=== PATIENT | female | born 1980 | race American Indian/Alaskan Native ===

== ENCOUNTER 2017-08-22 07:57 | Outpatient (CLI) | payer BC ==
[2017-08-24 16:35] LABS: Basophils % (Auto) 0.6 % (0.0-1.8); Eosinophils # (Auto) 0.2 K/mm3 (0.0-0.4); Eosinophils % (Auto) 2.2 % (0.0-4.3); Hematocrit 40.2 % (30.3-42.9); Hemoglobin 13.3 gm/dl (10.1-14.3); Lymphocytes # (Auto) 1.8 K/mm3 (1.2-5.4); Lymphocytes % (Auto) 20.5 % (13.4-35.0); Mean Corpuscular HGB Conc 33 % (30-34); Mean Corpuscular Hemoglobin 30 pg (28-32); Mean Corpuscular Volume 90 fl (79-97); Monocytes # (Auto) 0.4 K/mm3 (0.0-0.8); Platelet Count 291 K/mm3 (140-440); Red Blood Count 4.44 M/mm3 (3.65-5.03); Red Cell Distribution Width 13.8 % (13.2-15.2)
[2017-08-24 17:07] LABS: HCG,Quantitative 1117 mIU/mL (0-4); Hepatitis C Virus Antibody Non-Reactive (NonReactive); Rubella IgG Antibody Immune (Immune)
[2017-08-30 08:42] LABS: HIV-1 Antibody Differentiation SEE SCANNED RESULT; HIV-2 Antibody Differentiation SEE SCANNED RESULT
== END 2017-08-22 07:58 | disposition home or self-care (01) ==
LOC: LABHHL 07:57
PROVIDERS: ATTEND Obstetrics & Gynecology
DX: O03.9 Complete or unspecified spontaneous abortion without complication (principal); Z3A.01 Less than 8 weeks gestation of pregnancy
CPT/HCPCS: 36415; 84702; 85025; 85660; 86592; 86689; 86762; 86803; 86850; 86900; 86901; 87086; 88305

== ENCOUNTER 2019-01-31 11:36 | Emergency (ER) | payer BC ==
[2019-01-31 11:51] VITALS: BP 153/87
--- NOTE | 2019-01-31 11:51 | Event Note ---
ED Screening Note ED Screening Note: lower abd pain for two weeks and lower back occasional nausea no vomiting no diarrhea no fever +pressure and dysuria with urination normal BM yesterday PMHx none no allergies to meds LNMP January 20 This initial assessment/diagnostic orders/clinical plan/treatment(s) is/are subject to change based on patients health status, clinical progression and re- assessment by fellow clinical providers in the ED. Further treatment and workup at subsequent clinical providers discretion. Patient/guardian urged not to elope from the ED as their condition may be serious if not clinically assessed and managed. Initial orders include: labs, UA
--- NOTE | 2019-01-31 12:48 | Emergency Department Report ---
HPI - General Chief Complaint: Abdominal Pain Time Seen by Provider: 01/31/19 11:50 - HPI HPI: 38-year-old -[place] female, who is an employee here, presents to the emergency department with the complaint of lower abdominal and/or pelvic pain for the past 2.5 weeks. At first she thought it was related to her menstrual cycle as it started about that time, but the menstrual cycle ended and the pain continues. She then thought it might be some gas but has been passing gas and having regular bowel movements and yet the pain still continues. It is intermittent but is becoming more often and more intense. She denies any dysuria, vaginal bleeding or discharge, fever. She has a past medical history of fibroids and 2 previous C-sections. She has tried lktt-fql-vwjfjzk gas and laxative medications without any relief. Her last menstrual cycle was January 20. ED Past Medical Hx - Past Medical History Previous Medical History?: Yes Additional medical history: fibroids - Surgical History Past Surgical History?: Yes Additional Surgical History: c section x 2 - Social History Smoking Status: Never Smoker Substance Use Type: Alcohol - Medications Home Medications: Home Medications Medication Instructions Recorded Confirmed Last Taken Type Ibuprofen [Motrin] 600 mg PO Q8H PRN #40 tablet 03/09/15 12/07/15 Unknown Rx traMADol [Ultram] 50 mg PO Q6HR PRN #20 tablet 12/07/15 Unknown Rx Docusate Sodium [Colace] 100 mg PO BID PRN #20 capsule 01/31/19 Unknown Rx ED Review of Systems ROS: Stated complaint: LOW ABD PAIN Other details as noted in HPI Comment: All other systems reviewed and negative Constitutional: denies: chills, fever Gastrointestinal: abdominal pain. denies: nausea, vomiting Genitourinary: denies: dysuria, discharge Musculoskeletal: denies: back pain Neurological: denies: numbness, paresthesias Physical Exam - Physical Exam Vital Signs: Vital Signs 01/31/19 11:50 Temperature 98.0 F Pulse Rate 85 Respiratory 16 Rate Blood Pressure 153/87 O2 Sat by Pulse 100 Oximetry Physical Exam: GENERAL: The patient is well-developed well-nourished. HENT: Normocephalic. Atraumatic. Patient has moist mucous membranes. EYES: Extraocular motions are intact. NECK: Supple. Trachea is midline. CHEST/LUNGS: Clear to auscultation. There is no respiratory distress noted. HEART/CARDIOVASCULAR: Regular. There is no tachycardia. There is no murmur. ABDOMEN: Abdomen is soft, nontender. No guarding. Patient has normal bowel sounds. There is no abdominal distention. SKIN: Skin is warm and dry. NEURO: The patient is awake, alert, and oriented. The patient is cooperative. The patient has no focal neurologic deficits. Normal speech. MUSCULOSKELETAL: There is no tenderness or deformity. There is no evidence of acute injury. ED Course Vital Signs 01/31/19 11:50 Temperature 98.0 F Pulse Rate 85 Respiratory 16 Rate Blood Pressure 153/87 O2 Sat by Pulse 100 Oximetry ED Medical Decision Making - Lab Data Result diagrams: 01/31/19 12:10 01/31/19 12:10 - Radiology Data Radiology results: report reviewed, image reviewed interpreted by me: Abdominal x-ray shows increased stool volume concerning for constipation. ULTRASOUND PELVIS DUPLEX DOPPLER COMPLETE ULTRASOUND TRANSVAGINAL HISTORY: Pelvic pain TECHNIQUE: Transabdominal and transvaginal ultrasound with color and spectral Doppler imaging. FINDINGS: The uterus is anteverted. The uterus is enlarged measuring 12 x 5 x 8 cm. There are a few scattered intramural fibroids. A 1.5 cm intramural fibroid is identified in the left lateral wall. A 2.5 cm intramural fibroid is identified in the anterior left lateral wall. A large exophytic fibroid from the right lateral wall measures up to 7.5 cm. The endometrium measures 1.3 cm. The right ovary measures 6.9 x 3.7 x 7.9 cm. A large 6.5 cm cyst is identified in the right ovary. The left ovary measures 3.8 x 3.4 x 4.5 cm. A 2.3 cm left ovarian cyst is identified. Spectral Doppler waveforms demonstrate arterial flow to both ovaries. IMPRESSION: Uterine fibroid disease. Bilateral ovarian cyst as described. - Medical Decision Making Patient presents with some lower abdominal or pelvic discomfort over the past 2.5 weeks. Labs have been unremarkable including CBC, metabolic panel, urinalysis and the patient is not . Transvaginal ultrasound shows multiple uterine fibroids including a large exophytic 7.5 cm right-sided fibroid, and bilateral ovarian cysts including a large right-sided 6 cm cyst. No ovarian torsion. Abdominal x-ray shows a large amount of stool but no signs of obstruction. The patient later tells me that she does have a history of irregular bowel movements for which she has seen GI and has even been on Linzess recently. Despite the large fibroid and large cyst, they are right-sided and her pain is mostly to the left lower quadrant and left pelvis. It may be secondary to the increased stool volume. Abdomen is soft, nontoxic and nondistended. Patient has good follow-up with primary care and gastroenterology. She will be placed on Colace stool softeners. She will return to the emergency Department with any worsening of her symptoms or any acute distress. Vital signs stable throughout her ED course. - Differential Diagnosis ovarian cyst, ovarian torsion, fibroids, constipation, colitis Critical Care Time: No Critical care attestation.: If time is entered above; I have spent that time in minutes in the direct care of this critically ill patient, excluding procedure time. ED Disposition Clinical Impression: Increased stool volume, Fibroids Abdominal pain Qualifiers: Abdominal location: left lower quadrant Qualified Code(s): R10.32 - Left lower quadrant pain Ovarian cyst Qualifiers: Laterality: bilateral Qualified Code(s): N83.201 - Unspecified ovarian cyst, right side Disposition: DC-01 TO HOME OR SELFCARE Is pt being admited?: No Condition: Stable Instructions: Ovarian Cyst (ED), Uterine Fibroids (ED), Constipation (ED), High Fiber Diet (ED), Abdominal Pain (ED) Additional Instructions: Please follow-up with your primary care physician in the next few days. Return to the emergency Department with any worsening of your symptoms or any acute distress. Prescriptions: Docusate Sodium [Colace] 100 mg PO BID PRN #20 capsule PRN Reason: Constipation Referrals: JEREMIAS FAITH MD [Primary Care Provider] - 2-3 Days
[2019-01-31 13:04] LABS: Basophils # (Auto) 0.1 K/mm3 (0.0-0.1); Basophils % (Auto) 0.8 % (0.0-1.8); Eosinophils # (Auto) 0.3 K/mm3 (0.0-0.4); Eosinophils % (Auto) 3.4 % (0.0-4.3); Hematocrit 43.4 % (30.3-42.9); Hemoglobin 14.7 gm/dl (10.1-14.3); Lymphocytes # (Auto) 2.3 K/mm3 (1.2-5.4); Lymphocytes % (Auto) 31.4 % (13.4-35.0); Mean Corpuscular HGB Conc 34 % (30-34); Mean Corpuscular Volume 91 fl (79-97); Monocytes # (Auto) 0.4 K/mm3 (0.0-0.8); Monocytes % (Auto) 5.5 % (0.0-7.3); Red Blood Count 4.76 M/mm3 (3.65-5.03); Red Cell Distribution Width 13.6 % (13.2-15.2)
[2019-01-31 13:31] LABS: Alanine Aminotransferase 13 units/L (7-56); Albumin 4.4 g/dL (3.9-5); BUN/Creatinine Ratio 17; Blood Urea Nitrogen 17 mg/dL (7-17); Calcium 9.5 mg/dL (8.4-10.2); Hemolysis Index 34
--- NOTE | 2019-01-31 13:58 | Ultrasound Report ---
ULTRASOUND PELVIS DUPLEX DOPPLER COMPLETE ULTRASOUND TRANSVAGINAL HISTORY: Pelvic pain TECHNIQUE: Transabdominal and transvaginal ultrasound with color and spectral Doppler imaging. FINDINGS: The uterus is anteverted. The uterus is enlarged measuring 12 x 5 x 8 cm. There are a few scattered i ntramural fibroids. A 1.5 cm intramural fibroid is identified in the left lateral wall. A 2.5 cm intr amural fibroid is identified in the anterior left lateral wall. A large exophytic fibroid from the ri ght lateral wall measures up to 7.5 cm. The endometrium measures 1.3 cm. The right ovary measures 6.9 x 3.7 x 7.9 cm. A large 6.5 cm cyst is identified in the right ovary. The left ovary measures 3.8 x 3.4 x 4.5 cm. A 2.3 cm left ovarian cyst is identified. Spectral Doppler waveforms demonstrate arterial flow to both ovaries. IMPRESSION: Uterine fibroid disease. Bilateral ovarian cyst as described. Signer Name: Prasanth Campbell Jr, MD Signed: 01/31/2019 1:54 PM Workstation Name: [id number]
[2019-01-31 14:19] LABS: Bacteria,Urine 3+ /HPF (Negative); Bilirubin,Urine NEG (Negative); Blood,Urine MOD (Negative); Color,Urine Yellow (Yellow); Hyaline Casts,Urine 1 /LPF; Mucus,Urine 3+ /HPF; Protein,Urine <15 mg/dL mg/dL (Negative); Urobilinogen,Urine < 2.0 mg/dL (<2.0)
[2019-01-31 14:21] LABS: HCG Qualitative,Urine Negative (Negative)
[2019-01-31 14:58] LABS: Platelet Count 195 K/mm3 (140-440)
--- NOTE | 2019-01-31 15:07 | XRay Report ---
ABDOMEN 2 VIEW(S) INDICATION / CLINICAL INFORMATION: Abdominal pain. COMPARISON: None available. FINDINGS: TUBES / LINES: None. BOWEL GAS PATTERN: Moderate stool is present throughout the colon. No dilated bowel or fluid levels. FREE AIR / EXTRALUMINAL GAS: None seen. ADDITIONAL FINDINGS: Subtle calcified fibroid is suspected in the pelvis measuring up to 5 cm. IMPRESSION: Constipation. Uterine fibroid. Signer Name: Prasanth Campbell Jr, MD Signed: 01/31/2019 3:02 PM Workstation Name: [id number]
== END 2019-01-31 15:43 | disposition home or self-care (01) ==
LOC: ED 11:36
DX: N83.201 Unspecified ovarian cyst, right side (principal)
CPT/HCPCS: 36415; 74019; 76830; 80053; 81001; 81025; 85025; 93975

== ENCOUNTER 2019-07-14 09:50 | Outpatient (CLI) | payer BC ==
[2019-07-14 10:08] LABS: Basophils # (Auto) 0.1 K/mm3 (0.0-0.1); Eosinophils # (Auto) 0.3 K/mm3 (0.0-0.4); Eosinophils % (Auto) 3.4 % (0.0-4.3); Hematocrit 39.9 % (30.3-42.9); Hemoglobin 13.1 gm/dl (10.1-14.3); Lymphocytes # (Auto) 2.2 K/mm3 (1.2-5.4); Lymphocytes % (Auto) 29.1 % (13.4-35.0); Mean Corpuscular HGB Conc 33 % (30-34); Mean Corpuscular Volume 91 fl (79-97); Monocytes # (Auto) 0.5 K/mm3 (0.0-0.8); Monocytes % (Auto) 6.6 % (0.0-7.3); Platelet Count 292 K/mm3 (140-440); Red Blood Count 4.41 M/mm3 (3.65-5.03); Red Cell Distribution Width 13.8 % (13.2-15.2)
[2019-07-14 10:33] LABS: Alanine Aminotransferase 27 units/L (7-56); Albumin 4.3 g/dL (3.9-5); BUN/Creatinine Ratio 13; Blood Urea Nitrogen 13 mg/dL (7-17); Calcium 9.7 mg/dL (8.4-10.2); Hemolysis Index 5; LDL Cholesterol,Direct 100 mg/dL (50-130)
[2019-07-14 11:46] LABS: Chol/HDL Ratio 2.52 %; HDL Cholesterol 69 mg/dL (40-59)
== END 2019-07-14 09:51 | disposition home or self-care (01) ==
LOC: LAB 09:50
PROVIDERS: ATTEND Family Medicine
DX: Z00.00 Encounter for general adult medical examination without abnormal findings (principal)
CPT/HCPCS: 36415; 80053; 80061; 85025

== ENCOUNTER 2020-01-14 13:30 | Outpatient (CLI) | payer BC ==
[2020-01-14 13:46] LABS: Bilirubin,Urine NEG (Negative); Blood,Urine SM (Negative); Color,Urine Straw (Yellow); Protein,Urine <15 mg/dL mg/dL (Negative); Urobilinogen,Urine < 2.0 mg/dL (<2.0)
== END 2020-01-14 13:31 | disposition home or self-care (01) ==
LOC: LAB 13:30
PROVIDERS: ATTEND Family Medicine
DX: N39.0 Urinary tract infection, site not specified (principal); Z13.29 Encounter for screening for other suspected endocrine disorder
CPT/HCPCS: 81001; 87086

== ENCOUNTER 2020-06-10 14:42 | Outpatient (CLI) | payer BC ==
--- NOTE | 2020-06-10 16:02 | Mammography Report ---
DIGITAL SCREENING MAMMOGRAM WITH TOMOSYNTHESIS WITH CAD, 06/10/2020 CLINICAL INFORMATION / INDICATION: Routine Screening Mammography. TECHNIQUE: Digital bilateral 2D and 3D mammography with tomosynthesis was obtained in the craniocaud al and mediolateral oblique projections. Computer-Aided Detection (CAD) analysis was used for interp retation of this study. COMPARISON: None FINDINGS: Breast Density: The breasts are heterogeneously dense, which may obscure small masses. No dominant mass, suspicious calcifications, or architectural distortion in either breast. IMPRESSION: No mammographic evidence of malignancy. Follow up recommendation: Routine yearly BI-RADS Category 1: Negative. A "normal" or negative report should not discourage follow up or biopsy of a clinically significant f inding. A written summary of these findings will be mailed to the patient. The patient will be entered into a mammography reporting system which will generate a reminder letter for the patient's next appointmen t at the appropriate interval. The [employer] recommends yearly mammograms starting at age 40 and continuing as l jimbo as a woman is in good health. Breast MRI is recommended for women with an approximate 20-25% or greater lifetime risk of breast cancer, including women with a strong family history of breast or ova jose g cancer or who have been treated for Hodgkin's disease. Signer Name: Ángel Patterson MD Signed: 06/10/2020 3:58 PM Workstation Name: [id number]
== END 2020-06-10 14:43 | disposition home or self-care (01) ==
LOC: SPVWC 14:42
PROVIDERS: ATTEND Obstetrics & Gynecology
DX: Z12.31 Encounter for screening mammogram for malignant neoplasm of breast (principal)
CPT/HCPCS: 77063; 77067

== ENCOUNTER 2021-04-05 10:41 | Outpatient (CLI) | payer BC ==
[2021-04-06 11:40] LABS: Alanine Aminotransferase 15 units/L (7-56); Albumin 4.6 g/dL (3.9-5); BUN/Creatinine Ratio 14; Blood Urea Nitrogen 13 mg/dL (7-17); Calcium 9.7 mg/dL (8.4-10.2); Chol/HDL Ratio 2.37 %; HDL Cholesterol 83 mg/dL (40-59); Hemolysis Index 3; LDL Cholesterol,Direct 106 mg/dL (50-130)
[2021-04-06 11:44] LABS: Free T4 (Free Thyroxine) 1.36 ng/dL (0.76-1.46)
[2021-04-06 12:41] LABS: Basophils % (Auto) 0.7 % (0.0-1.8); Eosinophils # (Auto) 0.2 K/mm3 (0.0-0.4); Eosinophils % (Auto) 3.2 % (0.0-4.3); Hematocrit 43.5 % (30.3-42.9); Hemoglobin 13.9 gm/dl (10.1-14.3); Lymphocytes # (Auto) 2.2 K/mm3 (1.2-5.4); Lymphocytes % (Auto) 38.4 % (13.4-35.0); Mean Corpuscular HGB Conc 32 % (30-34); Mean Corpuscular Volume 93 fl (79-97); Monocytes # (Auto) 0.4 K/mm3 (0.0-0.8); Monocytes % (Auto) 6.3 % (0.0-7.3); Platelet Count 303 K/mm3 (140-440); Red Cell Distribution Width 13.6 % (13.2-15.2)
[2021-04-06 13:35] LABS: Creatinine,Urine 105.4 mg/dL (0.1-20.0)
[2021-04-06 13:36] LABS: Microalbumin/Creatinine Ratio 11.3 ug/mg
== END 2021-04-05 10:42 | disposition home or self-care (01) ==
LOC: LAB 10:41
PROVIDERS: ATTEND Family Medicine
DX: Z00.00 Encounter for general adult medical examination without abnormal findings (principal)
CPT/HCPCS: 36415; 80053; 80061; 82043; 84439; 84443; 85025

== ENCOUNTER 2021-05-04 15:02 | Outpatient (CLI) | payer BC ==
--- NOTE | 2021-05-04 16:55 | Ultrasound Report ---
BILATERAL DIGITAL DIAGNOSTIC MAMMOGRAM WITH CAD CONVENTIONAL, 05/04/2021 LEFT LIMITED BREAST ULTRASOUND CLINICAL INFORMATION / INDICATION: Patient presents for evaluation of an area of palpable concern in the left breast. N63.24 TECHNIQUE: Digital bilateral mammographic imaging was performed. Spot compression views were obtained . Limited ultrasound was performed. This examination was interpreted with the benefit of Computer-Aid ed Detection (CAD) analysis. COMPARISON: Prior mammogram 06/10/2020 FINDINGS: Breast Density: The breasts are heterogeneously dense, which may obscure small masses. MAMMOGRAPHIC FINDINGS: No dominant mass, suspicious calcifications, or architectural distortion in th e right breast. There is suggestion of a approximately 2.5 cm obscured oval mass corresponding with t he site of palpable concern in the 12:00 position of the left breast, middle depth. An additional que stioned nodular density in the far posterior 9 to 10:00 position of the left breast did not persist o n spot compression views, most suggestive of overlapping fibroglandular tissue. Targeted ultrasound w as performed for further evaluation. ULTRASOUND FINDINGS: Targeted ultrasound evaluation was performed of the area of interest. Targeted ultrasound of the area of palpable concern in the left breast 11:00 position located 5 cm from the n ipple reveals an oval circumscribed mixed echogenicity mass measuring up to 2.7 x 0.8 x 1.6 cm. The m ass is parallel. Incidental note is made of several additional scattered benign cysts in the left jessa ast. IMPRESSION: 1. An oval circumscribed mixed echogenicity mass corresponds with the site of palpable concern in the left breast. This is considered low suspicion for malignancy and most likely reflects a fibroadenoma . However, because this area is newly palpable, ultrasound-guided biopsy is recommended for confirmat ion. Follow up recommendation: Biopsy BI-RADS Category 4: SUSPICIOUS FOR MALIGNANCY. A "normal" or negative report should not discourage follow up or biopsy of a clinically significant f inding. A written summary of these findings will be mailed to the patient. The patient will be entered into a mammography reporting system which will generate a reminder letter for the patient's next appointmen t at the appropriate interval. According to the [employer], yearly mammograms are recommended starting at age 40 and continuing as long as a woman is in good health. Breast MRI is recommended for women with an cedrick roximately 20-25% or greater lifetime risk of breast cancer, including women with a strong family his tory of breast or ovarian cancer and women who have been treated for Hodgkin's disease. Signer Name: Thuy Horton MD Signed: 05/04/2021 4:50 PM Workstation Name: [id number]
== END 2021-05-04 15:03 | disposition home or self-care (01) ==
LOC: MAMMO 15:02
PROVIDERS: ATTEND Obstetrics & Gynecology
DX: N63.24 Unspecified lump in the left breast, lower inner quadrant (principal)
CPT/HCPCS: 77066

== ENCOUNTER 2021-06-02 10:35 | Outpatient (CLI) | payer BC ==
--- NOTE | 2021-06-02 12:17 | Mammography Report ---
ULTRASOUND GUIDED LEFT BREAST BIOPSY, 06/02/2021 Left DIAGNOSTIC MAMMOGRAM CLINICAL INFORMATION / INDICATION: POST US BX. Palpable left breast nodule here for follow-up biopsy COMPARISON: Ultrasound and diagnostic mammogram from 05/04/2021 PROCEDURE: Risks, benefits, and indications to the procedure were discussed with the patient in detail, includin g bleeding, infection, hematoma formation, and inadequate tissue sampling. The patient agreed to proc eed with both verbal and written consent. A timeout procedure was performed with two patient identifi ers. The breast was prepped and draped in the usual sterile fashion. Lidocaine 1% was used for local anest hesia. Under direct ultrasound guidance, 3 separate 14 gauge core samples were obtained of the left b reast nodule. A biopsy marker was then placed. Biopsy device was removed and hemostasis achieved wit h manual pressure. A sterile dressing was applied to the skin. The patient tolerated the procedure without difficulty. No complications were encountered. Postbiopsy instructions were discussed with the patient and given in writing. Specimens were sent to pathology. The patient was then sent for a confirmatory mammogram to demonstrate adequate clip positioning in th e area in question. IMPRESSION: 1. Technically successful ultrasound guided left breast biopsy. 2. Satisfactory positioning of the biopsy clip on the post procedure mammogram. Biopsy results are pending and will be reported in an addendum. Signer Name: Ángel Patterson MD Signed: 06/02/2021 12:11 PM Workstation Name: [id number]
== END 2021-06-02 10:36 | disposition home or self-care (01) ==
LOC: US 10:35
PROVIDERS: ATTEND Obstetrics & Gynecology
DX: N63.24 Unspecified lump in the left breast, lower inner quadrant (principal); R92.8 Other abnormal and inconclusive findings on diagnostic imaging of breast; Z79.899 Other long term (current) drug therapy
CPT/HCPCS: 88305

== ENCOUNTER 2021-09-23 08:41 | Day surgery (SDC) | payer BC ==
[~2021-09-23 08:41] MED LIST: ACETAMINOPHEN 500 MG TAB PO SCH; CELECOXIB 200 MG CAP PO NR; GABAPENTIN 300 MG CAP PO NR; LACTATED RINGERS 1,000 ML IV SCH; MIDAZOLAM 2 MG/2 ML INJ IV NR; SCOPOLAMINE TRANSDERMAL PATCH 72 HR TD NR
--- NOTE | 2021-09-23 10:51 | Anesthesia Consultation ---
Anesthesia Consult and Med Hx Date of service: 09/23/21 - Airway Anesthetic Teeth Evaluation: Good ROM Head & Neck: Adequate Mental/Hyoid Distance: Adequate Mallampati Class: Class II Intubation Access Assessment: Probably Good - Pre-Operative Health Status ASA Pre-Surgery Classification: ASA2 Proposed Anesthetic Plan: MAC Nerve Block: PECS I/II - Pulmonary Hx Smoking: Yes (former smoker quit many years ago) Hx Respiratory Symptoms: No - Cardiovascular System Hx Hypertension: Yes Hx Heart Attack/AMI: No - Central Nervous System CVA: No - Endocrine Hx Renal Disease: No Hx Liver Disease: No Hx Insulin Dependent Diabetes: No Hx Non-Insulin Dependent Diabetes: No Hx Thyroid Disease: No - Other Systems Hx Obesity: Yes (BMI 32) - Additional Comments Anesthesia Medical History Comments: No prior GA or FHx anesthetic complications. Patient would like to avoid GA.
--- NOTE | 2021-09-23 10:51 | Anesthesia Day of Surgery ---
Anesthesia Day of Surgery - Day of Surgery Patient Examined: Yes Patient H&P Reviewed: Yes Patient is NPO: Yes
[2021-09-23] MEDS ORDERED: ceFAZolin/Water 2 GM/20 ML 2 GM/20 ML SYRINGE IV ONE (10:59)
[2021-09-23] MEDS ORDERED: BUPIVACAINE/PF (0.5%) 5 MG/1 ML 30 ML VIAL INFILTRATI ONE ×3 (12:42→14:16)
[2021-09-23] MEDS ORDERED: ceFAZolin/STERILE WATER 2 GM/20 ML SYRINGE IV NR (13:00)
[2021-09-23] MEDS ORDERED: fentaNYL 100 MCG/2 ML INJ IV PRN (13:00)
[2021-09-23] MEDS ORDERED: LIDOCAINE (1%) 10 MG/1 ML VIAL 20 ML MDV ONE ×2 (13:06→13:38)
[2021-09-23] MEDS ORDERED: BUPIVACAINE-EPINEPHRINE/PF 0.25%-1:200,000 (30 ML) VIAL INFILTRATI ONE (13:06)
[2021-09-23] MEDS ORDERED: propofoL 200 MG/20 ML VIAL IV ONE ×2 (13:35→13:49)
[2021-09-23] MEDS ORDERED: LIDOCAINE MPF (2%) 20 MG/1 ML VIAL 5 ML ONE (13:35)
[2021-09-23] MEDS ORDERED: LIDOCAINE (1%) 10 MG/1 ML VIAL 20 ML MDV INFILTRATI ONE (14:15)
[2021-09-23] MEDS ORDERED: WATER FOR IRRIG STERILE 1,000 ML BOTTLE IR ONE (14:16)
--- NOTE | 2021-09-23 14:42 | Short Stay Summary ---
Short Stay Documentation Date of service: 09/23/21 - History H&P: obtained from office - Allergies and Medications Current Medications: Allergies No Known Allergies Allergy (Verified 09/15/21 10:23) Home Medications Medication Instructions Recorded Confirmed Last Taken Type hydroCHLOROthiazide [Hctz] 12.5 mg PO QDAY 09/21/21 09/21/21 Unknown History Active Medications Acetaminophen (Acetaminophen 500 Mg Tab) 1,000 mg PO PREOP MANOHAR Last Admin: 09/23/21 09:30 Dose: 1,000 mg Cefazolin Sodium (Cefazolin/Sterile Water 2 Gm/20 Ml Syringe) 2 gm IV PREOP NR Stop: 09/23/21 23:59 Celecoxib (Celecoxib 200 Mg Cap) 200 mg PO PREOP NR Stop: 09/23/21 23:59 Last Admin: 09/23/21 09:30 Dose: 200 mg Fentanyl (Fentanyl 100 Mcg/2 Ml Inj) 100 mcg IV ONCE PRN PRN Reason: sedation for nerve block Stop: 09/23/21 20:00 Last Admin: 09/23/21 13:11 Dose: 100 mcg Gabapentin (Gabapentin 300 Mg Cap) 300 mg PO PREOP NR Stop: 09/23/21 23:59 Last Admin: 09/23/21 09:30 Dose: 300 mg Lactated Ringer's (Lactated Ringers) 1,000 mls @ 100 mls/hr IV DIRECT MANOHAR Stop: 09/23/21 23:59 Last Admin: 09/23/21 09:30 Dose: 100 mls/hr Midazolam HCl (Midazolam 2 Mg/2 Ml Inj) 2 mg IV PREOP NR Stop: 09/23/21 23:59 Last Admin: 09/23/21 13:11 Dose: 2 mg Scopolamine (Scopolamine Transdermal Patch 72 Hr) 1 each TD PREOP NR Stop: 09/23/21 23:59 Last Admin: 09/23/21 09:30 Dose: 1 each - Brief post op/procedure progress note Date of procedure: 09/23/21 Pre-op diagnosis: Left breast mass Post-op diagnosis: same Procedure: Excisional biopsy left breast mass Anesthesia: MAC Findings: Left breast mass identified by ultrasound with a clip in place. It is up to 11 o'clock position 1 cm from the nipple. Surgeon: GUILLERMO DODSON (Dr. Morris) Estimated blood loss: minimal Pathology: list (Left breast open biopsy with short stitch on the superficial margin and a long stitch on the lateral margin) - Disposition Condition at discharge: Good Disposition: 01 HOME / SELF CARE / HOMELESS Short Stay Discharge Plan Activity: other (Patient to wear compression dressing with Kaiden wrap for 3 days she may remove Kaiden wrap for showers) Diet: regular Wound: other (Patient may shower over wound today) Follow up with: JEREMIAS FAITH MD [Primary Care Provider] - 7 Days GUILLERMO DODSON MD [Staff Physician] - 7 Days Prescriptions: HYDROcodone/APAP 5-325 [[place] 5/325] 1 each PO Q6HR PRN #10 tablet PRN Reason: Pain
--- NOTE | 2021-09-23 14:49 | Operative Report ---
Operative Report Operative Report: Date of procedure: 09/22/2021 Preop diagnosis: Left breast lesion Postop diagnosis: Same Procedure: Open biopsy of left breast lesion Surgeon: Dr. Henderson Anesthesia: MAC with IV sedation and a erectus Spinous Plane block Specimen: Left breast lesion with short stitch on the superior margin and long stitch on the lateral margin Estimated blood loss: Minimal Findings: This is a 40year-old female with a left breast lesion localized on ultrasound and mammogram. A minimally invasive biopsy as an outpatient was performed but was felt to be discordant with radiologic findings. Patient is taken to the OR and under MAC general anesthesia timeouts and consents are reviewed and are appropriately on the chart. In the preop area erectus spinuos plane blocks were completed by anesthesia. The left breast is prepped with ChloraPrep and draped in a sterile fashion. A curvilinear incision is made in the upper third of the nipple areolar complex. Electrocautery was used to elevate flaps superiorly and inferiorly. The area of concern is grasped with an Allis. Electrocautery was used to dissect posteri kellie until the post date: Posterior mammary fat pad is visualized. Ultrasound is used to identify the clip within the target lesion. Margins are labeled with a short stitch on the inferior margin and a long stitch on the lateral margin. The wound is irrigated with sterile water. Hemostasis is good. Superior and inferior flaps are elevated for 5 cm around the excision site. Advancement flap s are created the flap sizes are 5 x 5 cm. The wound is closed with 3-0 Vicryl for the subcutaneous tissue and 4-0 Monocryl for the skin followed by Dermabond. A compression dressing is placed over this.
[2021-09-23 15:29] VITALS: BP 119/78
--- NOTE | 2021-09-23 15:45 | Post Anesthesia Evaluation ---
- Post Anesthesia Evaluation Patient Participated: Yes Airway Patent: Yes Stable Respiratory Function: Yes Nausea/Vomiting: No Temp > 96.8F: Yes Pain Manageable: Yes Adequeate Hydration: Yes Anesthesia Complications: No
== END 2021-09-23 16:05 | disposition home or self-care (01) ==
LOC: OR 08:41
PROVIDERS: ATTEND Surgery
DX: N63.20 Unspecified lump in the left breast, unspecified quadrant (principal); D24.2 Benign neoplasm of left breast; Z87.891 Personal history of nicotine dependence; I10 Essential (primary) hypertension; E66.9 Obesity, unspecified; Z98.891 History of uterine scar from previous surgery; Z87.440 Personal history of urinary (tract) infections; Z72.89 Other problems related to lifestyle; Z80.3 Family history of malignant neoplasm of breast; Z98.890 Other specified postprocedural states; Z20.822 Contact with and (suspected) exposure to COVID-19
CPT/HCPCS: 19120; 64450; 88305; J0690; J2250; J2704; J3010; J3490; J7120; U0003; 88307; J7121